=== PATIENT | female | born 1965 | race Caucasian/White ===

== ENCOUNTER → 2018-09-04 | Outpatient (CLI) | payer OTHER ==
--- NOTE | 2018-09-04 12:06 | Diagnostic Imaging Report ---
Exam: Bone mineral density study. History: OSTEOPOROSIS Comparison: None available. Discussion: Evaluation of the left hip and lumbar spine was performed. The study is technically adequate. The patient's fracture risk is compared to an age-matched control. The patient denies prior surgery/fracture of the spine, hips or forearm. Left hip femoral neck bone mineral density: 1 g/cm2, T-score is 1.6, Z-score is 2.4. Left hip total bone mineral density: 1.1 g/cm2, T-score is 1.4, Z-score is 1.9. Lumbar spine total bone mineral density: 1.1 g/cm2, T-score is 0.3, Z-score is 1.1. Impression: Bone mineralization by WHO Classification is normal, the fracture risk is not increased. Signed by: Jolynn GoodsonO., M.M.M. on 09/04/2018 12:03 PM
== END ==
LOC: MAMMO 09:50
PROVIDERS: ATTEND Specialist
DX: Z12.31 Encounter for screening mammogram for malignant neoplasm of breast (principal); M81.0 Age-related osteoporosis without current pathological fracture
CPT/HCPCS: 77067; 77080